=== PATIENT | female | born 1975 | race Native Hawaiian/Other Pacific Islander ===

== ENCOUNTER 2018-02-11 09:00 | Outpatient (CLI) | payer OTHER | END 2018-02-11 19:58 | disposition home or self-care (01) | LOC: RESP 09:00 | DX: R07.89 Other chest pain (principal) ==

== ENCOUNTER 2019-02-12 09:57 | Outpatient (CLI) | payer OTHER | END 2019-02-12 23:59 | disposition home or self-care (01) | LOC: NM 09:57 | DX: R10.13 Epigastric pain (principal) | CPT/HCPCS: A9537 ==

== ENCOUNTER 2022-10-01 07:57 | Outpatient (CLI) | payer OTHER | END 2022-10-01 18:54 | disposition home or self-care (01) | LOC: US 07:57 | PROVIDERS: ATTEND Nurse Practitioner Family | DX: R74.8 Abnormal levels of other serum enzymes (principal) ==